=== PATIENT | female | born 2000 | race Caucasian/White ===

== ENCOUNTER 2024-01-11 07:56 | Inpatient (IN) ==
[2024-01-11] MEDS ORDERED: LIDOCAINE 1% LOCAL 20 ML VIAL INFIL PRN (08:15)
[2024-01-11] MEDS ORDERED: OXYTOCIN 30 UNITS/NSS 30 UNITS/500 ML BAG IV PRN (08:15)
--- NOTE | 2024-01-11 08:19 | History & Physical Report ---
Date of Service January 11, 2024 Assessment & Plan (1) Normal labor: Plan: Spontaneous labor GBS + tx with pen G GDM untreated, BSG q2h epidural pitocin arom when indicated monitor tracing, category 1 History of Present Illness Primary Care Provider: Freddie Hicks DO 23 yo at 38w2d admitted for labor. Began spontaneously augusto ~3am Denies CALLEJAS, CP, SOB, N/V/D, LE pain. GBS +, RH+. GBS+. -LOF, VB. +fm. GDM not on insulin Allergies Allergy/AdvReac Type Severity Reaction Status Date / Time erythromycin base [From [facility]] Allergy Intermediate Redness of Verified 01/08/24 10:37 Skin Home Medications Medication Instructions Recorded Confirmed Type sertraline 100 mg tablet 100 mg PO DAILY 08/29/23 01/11/24 History acetone (urine) test (Ketone Urine #50 ea 09/18/23 01/08/24 Rx Test strips) blood sugar diagnostic (OneTouch #150 ea 09/18/23 01/08/24 Rx Verio test strips) blood-glucose meter (OneTouch #1 ea 09/18/23 01/08/24 Rx Verio Reflect Meter) lancets 33 gauge (OneTouch Delica #150 ea 09/18/23 01/08/24 Rx Plus Lancet) insulin NPH isoph U-100 human 100 10 unit (0.1 mL) subcut QPM #15 mL 10/02/23 01/08/24 Rx unit/mL (3 mL) subcutaneous pen (Novolin N FlexPen) pen needle, diabetic 32 gauge x #100 ea 10/02/23 01/08/24 Rx 5/32" (BD Ultra-Fine Yasmin Pen Needle) vits no.124-ferrous fum 1 tab PO DAILY 01/11/24 01/11/24 History 27 mg iron-folic acid 800 mcg tablet ( Vitamin) Patient History Medical History (Updated 01/11/24 @ 09:26 by Subhash Kim DO) Depression Asthma Varicella vaccination Surgical History (Updated 08/22/23 @ 10:11 by Brenda Senior) Status post surgery tailbone fracture with repair S/P hernia surgery Status post surgery oral surgery x 2 Family History (Updated 08/22/23 @ 09:58 by Brenda Senior) Grandfather (Maternal) Heart disease Mother Diabetes Grandmother (Maternal) Kidney failure Denies family history of Ovarian cancer Breast cancer Colorectal cancer Social History (Updated 08/22/23 @ 09:59 by Brenda Senior) Smoking Status: Never smoker Do You Dip or Chew Tobacco: No; Hx Alcohol Use: No Hx Substance Use: No Preferred Language: R[place] Communication Ability: Effective Phlebotomy Supervisor Required: No Beliefs That Will Affect Care: None marital status: marital status details: Mack Nguyen(25) [phone] Current Living Situation: Family Current Living Situation Comment: lives with spouse, daughter, dog, cat-spouse changing litter current occupational status: employed current occupation: [employer] Other Information That Helps Us Care for You: No Feels Safe at Home: Yes Safety Concerns: Feels Safe At This Time OB History History : 4 Full term: 1 Premature: 0 Total Number of Induced Abortions: 0 Total Number of Spontaneous Abortions: 2 Ectopics: 0 Multiple births: 0 Number of Living Children: 1 Menstrual History Last menstrual period: No Menstrual reliability: unknown Flow: normal Menstrual regularity: irregular Monthly: No Age at menarche: 10 On control pills at conception: No Menstrual history comments: cycles "varies" per patient Details: last pap 05/2023 Review of Systems reviewed, per HPI Physical Exam Physical Exam: General: patient resting comfortably, NAD, non-toxic in appearance, answers questions appropriately. Skin: warm, dry, intact HEENT: NC/AT, anicteric sclera, conjunctiva without injection, moist mucus membranes Heart: +S1/S2, regular, no m/r/g Lungs: equal air entry bilaterally, no rales/rhonchi/wheezes Abd: +BS, soft, NT/ND, gravid uterus Cervical: 6|90|-2| Ext: warm, no clubbing/cyanosis or edema Neuro: nonfocal, speech intact, no facial droop, moving all extremities on command. : FHR baseline 150-60, moderate variability, accelerations present, decelerations absent Supervising Physician Co-Signing Physician Notes Resident Physician Supervision Note: I interviewed and examined the patient. Discussed with Dr. Kim and agree with findings and plan as documented in the note. Any exceptions or clarifications are listed here: [None] Documented By: Madhavi Ribeiro MD, FACOG Resident Activity Tracking Resident Involvement: Resident Care Provided Care Provided: Adult Hospital Medicine
[2024-01-11] MEDS: LACTATED RINGER'S 1,000 ML IV PRN (08:49)
[2024-01-11 09:01] LABS: Hematocrit (blood only) 29.3 % (37.0-47.0); Hemoglobin 8.6 g/dl (12.0-16.0); Mean Corpuscular Hemoglobin 21.9 pg (25.0-34.0); Mean Corpuscular Hgb Conc 29.4 g/dL (32.0-36.0); Mean Corpuscular Volume 74.7 fL (80.0-100.0); Platelet Count 348 K/uL (130-400); RDW Coefficient of Variation 15.9 % (11.5-14.5); RDW Standard Deviation 42.9 fL (36.4-46.3); Red Blood Count 3.92 M/uL (4.20-5.40); White Blood Count 15.39 K/ul (4.8-10.8)
[2024-01-11] MEDS: PENICILLIN GK 6 MU in DEXTROSE 5% 250 ML IV STA (09:02)
[2024-01-11] MEDS ORDERED: CARBOHYDRATES FOR HYPOGLYCEMIA PO PRN (09:49)
[2024-01-11] MEDS ORDERED: GLUCOSE 10 TAB/TUBE PO PRN (09:49)
[2024-01-11] MEDS ORDERED: DEXTROSE 50% 50 ML SYRINGE IV PRN ×2 (09:49→09:51)
[2024-01-11] MEDS ORDERED: GLUCOSE 40% GEL 15 GM TUBE PO PRN (09:49)
[2024-01-11] MEDS ORDERED: GLUCAGON FOR INJ 1 MG VIAL SQ PRN (09:49)
--- NOTE | 2024-01-11 09:50 | Anesthesiology Consultation ---
Date of Service January 11, 2024 Assessment & Plan Chart Review Chart Review: Acceptable Risk for Labor Epidural Consults Requested none History Height/Weight Height: 5 ft 3 in Weight: 117.934 kg Allergies Allergy/AdvReac Type Severity Reaction Status Date / Time erythromycin base [From [facility]] Allergy Intermediate Redness of Verified 01/08/24 10:37 Skin Medications Home Medications Medication Instructions Recorded Confirmed Last Taken sertraline 100 mg tablet 100 mg PO DAILY 08/29/23 01/11/24 01/10/24 acetone (urine) test (Ketone Urine #50 ea 09/18/23 01/08/24 Unknown Test strips) blood sugar diagnostic (OneTouch #150 ea 09/18/23 01/08/24 Unknown Verio test strips) blood-glucose meter (OneTouch #1 ea 09/18/23 01/08/24 Unknown Verio Reflect Meter) lancets 33 gauge (OneTouch Delica #150 ea 09/18/23 01/08/24 Unknown Plus Lancet) insulin NPH isoph U-100 human 100 10 unit (0.1 mL) subcut QPM #15 mL 10/02/23 01/08/24 Unknown unit/mL (3 mL) subcutaneous pen (Novolin N FlexPen) pen needle, diabetic 32 gauge x #100 ea 10/02/23 01/08/24 Unknown 5/32" (BD Ultra-Fine Yasmin Pen Needle) vits no.124-ferrous fum 1 tab PO DAILY 01/11/24 01/11/24 01/10/24 27 mg iron-folic acid 800 mcg tablet ( Vitamin) Active Medications Generic Name Dose Route Start Last Admin Trade Name Freq PRN Reason Stop Dose Admin Lactated Ringer's 1,000 mls @ 125 mls/hr 01/11/24 08:15 01/11/24 08:49 Lr IV 01/13/24 08:14 999 mls/hr .Q8H PRN Administration L&D Protocol Protocol Past Medical History Medical History (Updated 01/11/24 @ 09:26 by Sbuhash Kim DO) Depression Asthma Varicella vaccination Past Family History Family History (Updated 08/22/23 @ 09:58 by Brenda Senior) Grandfather (Maternal) Heart disease Mother Diabetes Grandmother (Maternal) Kidney failure Denies family history of Ovarian cancer Breast cancer Colorectal cancer Past Surgical History Surgical History (Updated 08/22/23 @ 10:11 by Brenda Senior) Status post surgery tailbone fracture with repair S/P hernia surgery Status post surgery oral surgery x 2 Social History Smoking Status: Never smoker Do You Dip or Chew Tobacco: No Hx Alcohol Use: No Hx Substance Use: No Physical Exam Vital Signs Last Vital Signs Temp 36.8 C 01/11/24 08:14 Resp 18 01/11/24 08:14 Testing Laboratory Results 01/11/24 08:44 01/11/24 08:47 POC Glucose 118 H
[2024-01-11] MEDS ORDERED: SODIUM CHLORIDE 0.9% 1,000 ML IV PRN (09:51)
[2024-01-11] MEDS ORDERED: NALBUPHINE HCL 5 MG in SYRINGE 0 ML IV PRN (09:52)
[2024-01-11] MEDS ORDERED: SODIUM CHLORIDE 0.9% PF INJ 10 ML VIAL EPI PRN (09:52)
[2024-01-11] MEDS ORDERED: NALOXONE HCL 1 MG in SODIUM CHLORIDE 0.9% 1,000 ML IV PRN (09:52)
[2024-01-11] MEDS ORDERED: fentaNYL citrate PF 100 MCG/2 ML VIAL EPI STA (09:52)
[2024-01-11] MEDS ORDERED: diphenhydrAMINE 50 MG/ML VIAL IV PRN (09:52)
[2024-01-11] MEDS ORDERED: NALOXONE HCL 0.4 MG/1 ML VIAL/CARP IV PRN (09:52)
[2024-01-11] MEDS ORDERED: fentaNYL citrate PF 100 MCG/2 ML VIAL EPI PRN (09:52)
[2024-01-11] MEDS ORDERED: SODIUM CHLORIDE 0.9% PF INJ 10 ML VIAL EPI STA (09:52)
[2024-01-11] MEDS ORDERED: LIDOCAINE 2% MPF LOCAL 5 ML VIAL EPI PRN (09:52)
[2024-01-11] MEDS ORDERED: BUPIVACAINE 0.25% PF 30 ML VIAL EPI PRN (09:52)
[2024-01-11] MEDS ORDERED: ROPIVACAINE 0.5% PF 5 MG/ML 20 ML VIAL EPI PRN (09:52)
[2024-01-11] MEDS ORDERED: LANTUS PER UNIT CHARGE SQ SCH (10:00)
[2024-01-11] MEDS: ePHEDrine sulfate 50 MG/ML AMP IV PRN (10:15)
[2024-01-11] MEDS: fentANYL 2 MCG/ML BUPIVacaine 0.125%-NSS 100ML BAG EPI PRN (10:18)
[2024-01-11] MEDS: BUPIVACAINE 0.25% PF 30 ML VIAL EPI STA (10:18)
[2024-01-11] MEDS: LIDOCAINE 2%/EPINEPHRINE 1:200,000 20 ML PF EPI STA (10:18)
--- NOTE | 2024-01-11 10:23 | Anesthesiology Consultation ---
Date of Service January 11, 2024 Assessment & Plan Chart Review Chart Review: Acceptable Risk for Surgery Consults Requested none ASA [id number] Proposed Anesthesia Anesthesia Type: CSE History Height/Weight Height: 5 ft 3 in Weight: 117.934 kg Allergies Allergy/AdvReac Type Severity Reaction Status Date / Time erythromycin base [From Er] Allergy Intermediate Redness of Verified 01/08/24 10:37 Skin Medications Home Medications Medication Instructions Recorded Confirmed Last Taken sertraline 100 mg tablet 100 mg PO DAILY 08/29/23 01/11/24 01/10/24 acetone (urine) test (Ketone Urine #50 ea 09/18/23 01/08/24 Unknown Test strips) blood sugar diagnostic (OneTouch #150 ea 09/18/23 01/08/24 Unknown Verio test strips) blood-glucose meter (OneTouch #1 ea 09/18/23 01/08/24 Unknown Verio Reflect Meter) lancets 33 gauge (OneTouch Delica #150 ea 09/18/23 01/08/24 Unknown Plus Lancet) insulin NPH isoph U-100 human 100 10 unit (0.1 mL) subcut QPM #15 mL 10/02/23 01/08/24 Unknown unit/mL (3 mL) subcutaneous pen (Novolin N FlexPen) pen needle, diabetic 32 gauge x #100 ea 10/02/23 01/08/24 Unknown " (BD Ultra-Fine Yasmin Pen Needle) vits no.124-ferrous fum 1 tab PO DAILY 01/11/24 01/11/24 01/10/24 27 mg iron-folic acid 800 mcg tablet ( Vitamin) Active Medications Generic Name Dose Route Start Last Admin Trade Name Freq PRN Reason Stop Dose Admin Ephedrine Sulfate 10 mg 01/11/24 09:52 01/11/24 10:15 Ephedrine Sulfate 50 Mg/Ml Amp IV 01/12/24 09:51 10 mg Q5M PRN Administration Hypotension Fentanyl/Bupivacaine/Sodium Chlor 100 ml 01/11/24 09:52 01/11/24 10:18 Fentanyl 2 Mcg/Ml Bupivacaine 0.125%-Nss 100ml Bag EPI 01/12/24 09:51 100 ml PRN PRN Administration Pain R/T Labor Protocol Lactated Ringer's 1,000 mls @ 125 mls/hr 01/11/24 08:15 01/11/24 12:00 Lr IV 01/13/24 08:14 125 mls/hr .Q8H PRN Administration L&D Protocol Protocol Penicillin G Potassium 3 mu/ 106 mls @ 100 mls/hr 01/11/24 11:15 01/11/24 12:40 Dextrose IV 01/21/24 11:14 106 mls/hr Q4H PRN Administration GBS(+) Until Delivery Dextrose 1,000 mls @ 100 mls/hr 01/11/24 09:51 01/11/24 14:57 D5w IV 02/10/24 09:50 100 mls/hr .Q10H PRN Titration BSG 180 or below Protocol Insulin Human Regular 250 250 mls @ 0.5 mls/hr 01/11/24 09:51 01/11/24 14:57 units/ Sodium Chloride IV 02/10/24 09:50 0.5 units/hr .Q24H PRN 0.5 mls/hr BSG 80mg/dL or ABOVE Titration Protocol 0.5 UNITS/HR Oxytocin 30 units in 500 mls @ 7 mls/hr 01/11/24 12:40 01/11/24 15:00 Pitocin 30 Units/Nss IV 01/13/24 12:39 0.42 units/hr .Q24H PRN 7 mls/hr Labor Induction/Augmentation Titration Protocol 0.42 UNITS/HR NPO Date Last Intake of Fluids: 01/11/24 Time Last Intake of Fluids: 09:30 Date Last Intake of Solids: 01/11/24 Time Last Intake of Solids: 07:30 Past Medical History Medical History (Updated 01/11/24 @ 09:26 by Subhash Kim DO) Depression Asthma Varicella vaccination Past Family History Family History (Updated 08/22/23 @ 09:58 by Brenda Senior) Grandfather (Maternal) Heart disease Mother Diabetes Grandmother (Maternal) Kidney failure Denies family history of Ovarian cancer Breast cancer Colorectal cancer Past Surgical History Surgical History (Updated 08/22/23 @ 10:11 by Brenda Senior) Status post surgery tailbone fracture with repair S/P hernia surgery Status post surgery oral surgery x 2 Social History Smoking Status: Never smoker Do You Dip or Chew Tobacco: No Hx Alcohol Use: No Hx Substance Use: No Physical Exam Vital Signs Last Vital Signs Temp 36.8 C 01/11/24 08:14 Pulse 105 H 01/11/24 10:22 Resp 18 01/11/24 08:14 BP 123/53 L 01/11/24 10:22 Pulse Ox 100 01/11/24 10:18 Testing Laboratory Results 01/11/24 08:44 01/11/24 08:47 POC Glucose 118 H
[2024-01-11] MEDS: DEXTROSE 5% 1,000 ML IV PRN (10:50)
[2024-01-11] MEDS: INSULIN REGULAR 250 UNITS in SODIUM CHLORIDE 0.9% 247.5 ML IV PRN (10:56)
[2024-01-11] MEDS: ePHEDrine sulfate 50 MG/ML AMP ONE (11:23)
[2024-01-11] MEDS: BUPIVACAINE 0.25% PF 30 ML VIAL ONE (11:23)
[2024-01-11] MEDS: fentANYL 2 MCG/ML BUPIVacaine 0.125%-NSS 100ML BAG ONE (11:23)
[2024-01-11] MEDS: fentaNYL citrate PF 100 MCG/2 ML VIAL ONE (11:23)
[2024-01-11] MEDS: LIDOCAINE 2%/EPINEPHRINE 1:200,000 20 ML PF ONE (11:24)
[2024-01-11] MEDS ORDERED: INSULIN ASPART PER UNIT CHARGE SC SCH (11:30)
[2024-01-11] MEDS: PENICILLIN GK 3 MU in DEXTROSE 5% 100 ML IV PRN (12:40)
[2024-01-11] MEDS: OXYTOCIN 30 UNITS/NSS 30 UNITS/500 ML BAG IV PRN ×2 (12:42→16:50)
[2024-01-11] MEDS ORDERED: fentaNYL citrate PF 100 MCG/2 ML VIAL ONE (15:04)
--- NOTE | 2024-01-11 15:11 | Anesthesia Procedure Note ---
Date of Service January 11, 2024 Anesthesia Epidural Re-Dose Vital Signs Temp Pulse Resp BP Pulse Ox 36.8 C 90 18 117/56 L 100 01/11/24 13:00 01/11/24 15:08 01/11/24 14:30 01/11/24 14:24 01/11/24 15:08 Notes Pain Intensity: 8 Dilatation (cm): 10.0 Effacement (%): 100 Called by nursing to evaluate epidural as the patient is having increased pain. The epidural was re-dosed with the following medications (all medications via epidural route) after negative aspiration of the epidural catheter for CSF/HEME. 2% lidocaine 5ml with fentanyl 100mcg. After Epidural Re-Dose Mental Status: alert / awake / arousable Pain: improving with treatment Airway Patency, RR, SpO2: stable & adequate BP & HR: stable & adequate
[2024-01-11] MEDS ORDERED: bisacodyL 10 MG SUPP PR PRN (15:52)
[2024-01-11] MEDS ORDERED: BENZOCAINE 20% SPRY 85 APPLN/85 GM CAN EXT PRN (15:52)
[2024-01-11] MEDS ORDERED: ACETAMINOPHEN 325 MG TAB PO PRN (15:52)
[2024-01-11] MEDS ORDERED: HYDROCORTISONE ACETATE 25 MG SUPP PR PRN (15:52)
[2024-01-11] MEDS ORDERED: oxyCODONE/ACETAMINOPHEN 5mg/325mg TAB PO PRN (15:52)
--- NOTE | 2024-01-11 16:04 | Delivery Summary ---
Vaginal Delivery Summary Date of Service January 11, 2024 Vaginal Delivery Summary Patient is a 23-year-old 2 para 1-0-0-1 female EDC of 01/23/2024 who presented in active labor. She received effective epidural analgesia. She did require some Pitocin augmentation to continue and effective contraction pattern. She progressed to full dilation and pushed effectively over intact perineum for delivery of a viable female . After the head was delivered nuchal cord x 1 was reduced. The rest the delivered without maternal effort. She was placed on the mother's abdomen for further attention and drying. With stimulation she did spontaneously start to cry. At approximately 45 seconds the cord was clamped and cut. After your cord blood was obtained, the placenta was expressed intact with a three-vessel cord. bleeding was controlled with dilute Pitocin and fundal massage. There were no perineal lacerations present. A superficial abrasion near the urethra was not bleeding and therefore not repaired. Estimated blood loss was 500 cc. Mother and infant were doing well after delivery. [facility] Vaginal Delivery Charge Delivery Type Details: [facility]
[2024-01-11] MEDS ORDERED: SODIUM CHLORIDE 0.9% 250 ML IV PRN (16:56)
[2024-01-11] MEDS ORDERED: LACTATED RINGER'S 1,000 ML IV SCH (17:30)
[2024-01-11] MEDS: METHYLERGONOVINE MALEATE 0.2 MG/ML AMP IM STA (17:40)
[2024-01-11 17:44] LABS: Hematocrit (blood only) 25.9 % (37.0-47.0); Hemoglobin 7.5 g/dl (12.0-16.0); Mean Corpuscular Hemoglobin 22.2 pg (25.0-34.0); Mean Corpuscular Volume 76.6 fL (80.0-100.0); Mean Platelet Volume 10.7 fL (9.4-12.4); Platelet Count 329 K/uL (130-400); RDW Coefficient of Variation 15.8 % (11.5-14.5); RDW Standard Deviation 43.9 fL (36.4-46.3); Red Blood Count 3.38 M/uL (4.20-5.40)
--- NOTE | 2024-01-11 17:48 | Obstetrical Progress Note ---
Date of Service January 11, 2024 Assessment & Plan (1) hemorrhage: Plan: Syncopal episode while still in the labor and delivery bed. She is now more responsive and less symptomatic now that IV fluids have been restarted. We will continue with IV Pitocin which has now been restarted. She had 500 cc estimated blood loss from the delivery +428 cc measured post delivery. She has been typed and crossed for 2 units and we will transfuse when they are available. Her initial hemoglobin was 8.6 she had not been taking a vitamin. Will get a stat H&H to start as well. She will receive 1 dose of transischemic acid. Admission and Anticipated Discharge Date Admission Date: January 11, 2024 Subjective I was called to the patient's bedside because in the immediate period she became unresponsive while still in the bed. Pulse oximeter showed oxygenation was 100%. Pulse was 92 - B/P was 101/58. Patient responded to sternal rub and voice. Fundal massage produced 428 cc of clot. Fundus was then firm. IV fluids were restarted and the patient has become more responsive. Review of Systems Review of Systems: All systems reviewed & are unremarkable except as noted in HPI & below Physical Exam Genitourinary: Fundus firm at umbilicus. No further clots are expelled. Bleeding seems to be minimal at this point. Results & Data Vital Signs (Past 12 Hours) Vital Signs Temp Pulse Resp BP Pulse Ox 01/11/24 17:39 100 H 108/56 L 01/11/24 17:38 95 H 100 01/11/24 17:33 91 H 100 01/11/24 17:28 97 H 100 01/11/24 17:26 98 H 111/58 L 01/11/24 17:23 91 H 99 01/11/24 17:21 91 H 101/58 L 01/11/24 17:18 89 100 01/11/24 17:16 83 112/57 L 01/11/24 17:13 88 100 01/11/24 17:11 88 106/57 L 01/11/24 17:10 18 01/11/24 17:08 85 100 01/11/24 17:06 84 108/56 L 01/11/24 17:03 96 H 100 01/11/24 17:01 88 109/55 L 01/11/24 16:58 104 H 102/55 L 100 01/11/24 16:55 97 H 102/52 L 01/11/24 16:53 96 H 100 01/11/24 16:40 97.9 F 18 01/11/24 16:39 100 H 113/58 L 01/11/24 16:25 18 01/11/24 16:23 115 H 109/58 L 01/11/24 16:10 18 01/11/24 16:09 97 H 110/56 L 01/11/24 15:55 18 01/11/24 15:54 100 H 125/58 L 01/11/24 15:40 98.2 F 18 01/11/24 15:39 105 H 123/52 L 01/11/24 15:23 115 H 99 01/11/24 15:21 110 H 83 L 01/11/24 15:18 120 H 100 01/11/24 15:13 88 100 01/11/24 15:08 90 100 01/11/24 15:03 91 H 100 01/11/24 14:58 84 100 01/11/24 14:53 94 H 100 01/11/24 14:48 79 100 01/11/24 14:43 97 H 100 01/11/24 14:40 91 H 85 L 01/11/24 14:38 104 H 97 01/11/24 14:34 96 H 91 01/11/24 14:33 88 100 01/11/24 14:30 18 01/11/24 14:30 18 01/11/24 14:28 80 100 01/11/24 14:24 95 H 117/56 L 01/11/24 14:23 98 H 100 01/11/24 14:18 82 99 01/11/24 14:13 84 100 01/11/24 14:08 85 125/66 100 01/11/24 14:03 85 99 01/11/24 14:00 18 01/11/24 14:00 18 01/11/24 13:58 84 100 01/11/24 13:54 86 118/56 L 01/11/24 13:53 87 100 01/11/24 13:48 91 H 100 01/11/24 13:43 94 H 100 01/11/24 13:39 88 131/67 01/11/24 13:38 87 100 01/11/24 13:33 94 H 100 01/11/24 13:30 18 01/11/24 13:30 18 01/11/24 13:28 94 H 100 01/11/24 13:25 86 116/64 01/11/24 13:23 92 H 100 01/11/24 13:18 81 100 01/11/24 13:13 88 100 01/11/24 13:09 88 124/59 L 01/11/24 13:08 82 100 01/11/24 13:03 87 100 01/11/24 13:00 18 01/11/24 13:00 98.2 F 18 01/11/24 12:58 91 H 100 01/11/24 12:55 93 H 107/59 L 01/11/24 12:53 88 100 01/11/24 12:48 87 100 01/11/24 12:43 98 H 100 01/11/24 12:39 87 113/55 L 01/11/24 12:38 85 100 01/11/24 12:33 86 100 01/11/24 12:30 18 01/11/24 12:30 18 01/11/24 12:28 87 100 01/11/24 12:23 96 H 116/57 L 100 01/11/24 12:18 96 H 100 01/11/24 12:13 97 H 100 01/11/24 12:09 86 121/58 L 01/11/24 12:08 88 100 01/11/24 12:03 90 100 01/11/24 11:58 102 H 99 01/11/24 11:53 88 113/58 L 100 01/11/24 11:48 89 100 01/11/24 11:43 95 H 100 01/11/24 11:38 91 H 112/61 100 01/11/24 11:33 97 H 100 01/11/24 11:30 18 01/11/24 11:30 18 01/11/24 11:28 94 H 100 01/11/24 11:24 88 116/57 L 01/11/24 11:23 89 100 01/11/24 11:18 97 H 100 01/11/24 11:13 96 H 100 01/11/24 11:09 96 H 116/55 L 01/11/24 11:08 97 H 100 01/11/24 11:03 94 H 100 01/11/24 10:58 92 H 100 01/11/24 10:53 89 121/58 L 100 01/11/24 10:50 86 119/58 L 01/11/24 10:48 95 H 100 01/11/24 10:43 88 100 01/11/24 10:38 89 100 01/11/24 10:33 91 H 100 01/11/24 10:28 96 H 100 01/11/24 10:24 18 01/11/24 10:24 18 01/11/24 10:23 98 H 100 01/11/24 10:22 105 H 18 123/53 L 01/11/24 10:20 91 H 18 127/59 L 01/11/24 10:19 81 126/58 L 01/11/24 10:18 81 18 100 01/11/24 10:16 98 H 18 80/41 L 01/11/24 10:14 88 18 90/45 L 01/11/24 10:13 92 H 99 01/11/24 10:12 103 H 18 103/46 L 01/11/24 10:08 89 100 01/11/24 10:06 76 140/65 01/11/24 10:03 99 H 99 01/11/24 10:01 102 H 87 L 01/11/24 09:58 104 H 99 01/11/24 09:53 99 01/11/24 09:53 86 01/11/24 09:53 86 143/67 H 01/11/24 08:14 98.2 F 18 01/11/24 08:09 18 01/11/24 08:09 98.2 F 18 PG Care Time/CCT Total # of Minutes Spent Total Time Spent with Patient: Total time spent is greater than 50% in coordination of care (as documented) at patient's floor/unit and/or counseling patient: Coding Level of Care Code None Diagnoses hemorrhage O72.1
[2024-01-11] MEDS: TRANEXAMIC ACID / 0.7% NACL 1,000 MG/100 ML BAG IV STA (18:04)
[2024-01-11] MEDS: SODIUM CHLORIDE 0.9% PF INJ 10 ML VIAL ONE (18:47)
[2024-01-11] MEDS: IBUPROFEN 600 MG TAB PO PRN (22:25)
[2024-01-12 03:28] LABS: Hematocrit (blood only) 27.9 % (37.0-47.0); Hemoglobin 8.5 g/dl (12.0-16.0); Mean Corpuscular Hemoglobin 23.9 pg (25.0-34.0); Mean Corpuscular Hgb Conc 30.5 g/dL (32.0-36.0); Mean Corpuscular Volume 78.6 fL (80.0-100.0); Mean Platelet Volume 10.8 fL (9.4-12.4); Platelet Count 266 K/uL (130-400); RDW Coefficient of Variation 16.4 % (11.5-14.5); RDW Standard Deviation 46.9 fL (36.4-46.3); Red Blood Count 3.55 M/uL (4.20-5.40); White Blood Count 20.67 K/ul (4.8-10.8)
--- NOTE | 2024-01-12 06:52 | Obstetrical Progress Note ---
Date of Service January 12, 2024 Assessment & Plan (1) care and examination: Plan: doing well encourage ambulation pain control no PNV, will need dc with iron supplement, multivitamin anticipate dc tomorrow Admission and Anticipated Discharge Date Admission Date: January 11, 2024 Supervising Physician Co-Signing Physician Notes Resident Physician Supervision Note: I interviewed and examined the patient. Discussed with Dr. Kim and agree with findings and plan as documented in the note. Any exceptions or clarifications are listed here: [None] Documented By: Madhavi Ribeiro MD, FACOG Subjective 23 yo post day 1 s/p . Post hemorrhage ~400cc, rec'd 2U PRBCs, Hb 8.5 this am Ambulation: ambulating normally Voiding: no voiding problems Passing Gas:: Yes Diet Tolerance:: regular diet Lochia:: Small Current Pain Level: mild/moderate Resting comfortably this AM in NAD. Denies CALLEJAS, CP, SOB, N/V/D, LE pain/swelling. Review of Systems Review of Systems: reviewed, per HPI Physical Exam Physical Exam: General: patient resting comfortably, NAD, non-toxic in appearance, answers questions appropriately. Skin: warm, dry, intact HEENT: NC/AT, anicteric sclera, conjunctiva without injection, moist mucus membranes. Heart: +S1/S2, regular, no m/r/g Lungs: equal air entry bilaterally, no rales/rhonchi/wheezes Abd: +BS, soft, NT/ND, uterine fundus firm at umbilicus Ext: warm, no clubbing/cyanosis or edema, Samantha's neg. Neuro: nonfocal, speech intact, no facial droop, moving all extremities on command. Results & Data Vital Signs (Past 12 Hours) Vital Signs Temp Pulse Pulse Resp BP BP Pulse Ox 01/12/24 03:09 36.4 C L 84 16 102/68 98 01/12/24 00:54 36.5 C 81 18 104/70 98 01/11/24 23:53 36.6 C 86 18 108/68 97 01/11/24 23:53 36.6 C 86 18 108/68 97 01/11/24 22:53 36.6 C 89 16 96/57 L 98 01/11/24 22:38 36.7 C 90 18 105/72 98 01/11/24 22:26 36.7 C 96 H 20 106/69 98 01/11/24 22:23 36.6 C 82 16 113/74 97 01/11/24 22:21 36.7 C 96 H 20 106/69 99 01/11/24 22:00 36.8 C 18 01/11/24 21:58 91 H 100 01/11/24 21:53 36.5 C 90 18 102/51 L 99 01/11/24 21:53 90 102/51 L 98 01/11/24 21:48 97 H 99 01/11/24 21:43 90 98 01/11/24 21:38 94 H 108/53 L 100 01/11/24 21:33 91 H 98 01/11/24 21:28 90 98 01/11/24 21:24 90 111/53 L 01/11/24 21:23 88 98 01/11/24 21:18 89 99 01/11/24 21:15 18 01/11/24 21:13 117 H 100 01/11/24 21:09 89 112/53 L 01/11/24 21:08 91 H 99 01/11/24 21:03 89 99 01/11/24 20:58 95 H 99 01/11/24 20:54 87 109/56 L 01/11/24 20:53 36.8 C 96 H 16 109/56 L 99 01/11/24 20:53 86 99 01/11/24 20:48 95 H 100 01/11/24 20:45 18 01/11/24 20:43 90 99 01/11/24 20:39 88 106/51 L 01/11/24 20:38 92 H 99 01/11/24 20:33 96 H 99 01/11/24 20:28 99 H 99 01/11/24 20:24 96 H 109/56 L 01/11/24 20:23 36.8 C 97 H 16 109/56 L 100 01/11/24 20:23 100 H 99 01/11/24 20:18 100 H 100 01/11/24 20:15 16 01/11/24 20:13 104 H 100 01/11/24 20:09 96 H 106/54 L 01/11/24 20:08 94 H 99 01/11/24 20:03 97 H 99 01/11/24 19:58 91 H 99 01/11/24 19:54 95 H 110/51 L 01/11/24 19:53 36.9 C 87 16 110/51 L 99 01/11/24 19:53 88 99 01/11/24 19:48 94 H 100 01/11/24 19:45 18 01/11/24 19:43 96 H 98 01/11/24 19:39 89 114/55 L 01/11/24 19:38 37.0 C 92 H 18 114/55 L 98 01/11/24 19:38 91 H 98 01/11/24 19:33 89 99 01/11/24 19:28 92 H 99 01/11/24 19:23 89 100 01/11/24 19:18 95 H 126/56 L 100 01/11/24 19:16 36.8 C 94 H 16 126/56 L 100 01/11/24 19:13 90 100 01/11/24 19:08 94 H 100 01/11/24 19:03 106 H 100 01/11/24 18:58 94 H 100 01/11/24 18:53 89 99 O2 Del Method 01/12/24 03:09 Room Air 01/12/24 00:54 01/11/24 23:53 Room Air 01/11/24 23:53 01/11/24 22:53 01/11/24 22:38 01/11/24 22:26 Room Air 01/11/24 22:23 01/11/24 22:21 01/11/24 22:00 01/11/24 21:58 01/11/24 21:53 01/11/24 21:53 01/11/24 21:48 01/11/24 21:43 01/11/24 21:38 01/11/24 21:33 01/11/24 21:28 01/11/24 21:24 01/11/24 21:23 01/11/24 21:18 01/11/24 21:15 01/11/24 21:13 01/11/24 21:09 01/11/24 21:08 01/11/24 21:03 01/11/24 20:58 01/11/24 20:54 01/11/24 20:53 01/11/24 20:53 01/11/24 20:48 01/11/24 20:45 01/11/24 20:43 01/11/24 20:39 01/11/24 20:38 01/11/24 20:33 01/11/24 20:28 01/11/24 20:24 01/11/24 20:23 01/11/24 20:23 01/11/24 20:18 01/11/24 20:15 01/11/24 20:13 01/11/24 20:09 01/11/24 20:08 01/11/24 20:03 01/11/24 19:58 01/11/24 19:54 01/11/24 19:53 01/11/24 19:53 01/11/24 19:48 01/11/24 19:45 01/11/24 19:43 01/11/24 19:39 01/11/24 19:38 01/11/24 19:38 01/11/24 19:33 01/11/24 19:28 01/11/24 19:23 01/11/24 19:18 01/11/24 19:16 01/11/24 19:13 01/11/24 19:08 01/11/24 19:03 01/11/24 18:58 01/11/24 18:53 Resident Activity Tracking Resident Involvement: Resident Care Provided Care Provided: Adult Hospital Medicine
[2024-01-12 07:43] LABS: Estimated Average Glucose 137 mg/dl; Hemoglobin A1C 6.4 % (4.5-5.6)
[2024-01-12] MEDS: DOCUSATE SODIUM 100 MG CAP PO SCH (07:52)
[2024-01-12] MEDS: PRENATAL VITAMIN 1 TAB PO SCH (07:52)
[2024-01-12] MEDS: SERTRALINE HCL 100 MG TABLET PO SCH (07:52)
[2024-01-12] MEDS: FERROUS SULFATE 325 MG TAB PO SCH (07:53)
[2024-01-12] MEDS ORDERED: PRENATAL VITAMIN 1 TAB PO SCH (09:00)
[2024-01-12] MEDS: DIPHTHER/TETAN/PERTUS Vaccine (Tdap, Adol/Adult) 0.5mL IM ONE (18:09)
[2024-01-12] MEDS ORDERED: bisacodyL 5 MG TABEC PO SCH (20:00)
--- NOTE | 2024-01-15 08:21 | Discharge Summary ---
Date of Service January 15, 2024 Admission HPI Per Admitting Provider 23 yo at 38w2d admitted for labor. Began spontaneously augusto ~3am Denies CALLEJAS, CP, SOB, N/V/D, LE pain. GBS +, RH+. GBS+. -LOF, VB. +fm. GDM not on insulin Admission Exam (Per Admitting) Constitutional no acute distress ENMT Nose: no facial edema Mouth: no dentition abnormality Mallampati Class: II Neck normal visual inspection Respiratory normal respiratory effort; no respiratory distress Auscultation: lungs clear to auscultation bilaterally Cardiovascular Rate/Rhythm: regular rate and regular rhythm Heart Sounds: no murmur Musculoskeletal Spine: normal cervical ROM Psychiatric Orientation: alert and oriented x 3 Discharge Data Consultations 01/11/24 08:15 Consult Anesthesiology Stat Hospital Course (1) care and examination: doing well encourage ambulation pain control no PNV, will need dc with iron supplement, multivitamin anticipate dc tomorrow Discharge Plan Discharge Items Patient Disposition: Home - Self-Care Reason For Visit: check labor Discharge Diagnosis: hemorrhage Activity: Per Instructions section Non-emergency contact: Primary Care Provider and [employer] Call non-emergency contact if: you have any medication questions, your pain is not controlled, your pain is unusual for you, you have a fever and your temperature is above 101 Follow-up/Referrals: Freddie Hicks, DO [Primary Care Provider] - Diet: Regular OB Addtl Attending Provider Instructions: ACTIVITY RECOMMENDATIONS: * Gradual return to full activity over the next 2-3 weeks. * No lifting - nothing heavier than baby over the next 2-3 weeks. * Do not engage in vigorous exercise, sexual activity or sports until cleared by your physician. * Do not drive or operate any motorized equipment until cleared by your physician. * You may shower/bathe daily. MEDICATIONS: For discomfort or pain, you may use Acetaminophen (Tylenol), Ibuprofen (Advil), or Naproxen (Aleve) following the package directions. For constipation you may use Colace following the package directions. BREAST CARE: If you are not breast feeding: * Wear a supportive bra 24 hours a day for one to two weeks. * Avoid stimulating your breasts and nipples as much as possible during the first few weeks after delivery. * When taking a shower, have the warm water hit your back, not breasts. * When your breasts feel full, apply ice packs. Usually three to four times a day helps ease the discomfort. * Take a mild pain medication (Tylenol / Motrin) when you are uncomfortable. If breast feeding: * Use breast milk to lubricate nipples. Lansinoh cream may be used for sore nipples. You do not need to remove cream prior to breast feeding. If using a different brand of cream, check the label for directions regarding removal of cream prior to nursing. * Wear a supportive bra. * If having problems with breasts or breast feeding, call a store consultant or your health care provider. EPISIOTOMY CARE: After delivery, if you have an episiotomy (stitches), the following steps will ease discomfort and aid healing. * For the first 24 hours after delivery, place ice packs next to your episiotomy to help reduce swelling. * After the first 24 hour-period, sitz baths, either portable or in the tub, are suggested. A shower with a shower arm sprayed over the episiotomy may be comforting. * Daily care should be done after each voiding and bowel movement. Squirt warm water from a plastic bottle over the perineum (region of the body between the anus and urinary opening) and pat dry. * Use Dermoplast to ease discomfort. Shake container. [place] directly over the episiotomy. Place a Tucks on a clean sanitary pad next to your episiotomy. SPECIAL CARE INSTRUCTIONS: When you are discharged from the hospital, it is important for you to follow the instructions listed below: * During the first week at home, you should be able to care for yourself and your baby. In addition, the usual light household activities are encouraged. * Limit your activities to the way you feel. Do not try to clean the house or move furniture. Be sensible. * If you actively engage in sports and have done so up until the time of your delivery, you may resume these activities as soon as you feel able. This may take up to one month or even longer. Use good judgment. * Continue to take your vitamins for at least six weeks after the of your baby. * Your diet need not be limited unless you were on a special diet before your delivery. Breast-feeding mothers need around 2500 calories per day and at least 64-80 ounces of fluid per day (8 to 10 glasses). * You should eat foods from the four major food groups. Crash diets or fad diets are to be avoided. Eating lean meats, fresh fruits and vegetables, low-fat dairy products, high fiber foods and a regular exercise program, will help you get back to your pre- weight without putting your health at risk. * Constipation is sometimes a problem after delivery. Take a mild laxative as needed. If breast feeding, Milk of Magnesia is acceptable to use. You may use a suppository or Fleets enema if no episiotomy. * A daily shower or tub bath is suggested. Be sure to thoroughly and gently dry the perineum. * A bloody vaginal discharge will usually continue until around four weeks post . A small amount of bleeding may continue for as long as six weeks. Vaginal discharge changes from the bright red bleeding after delivery to pink then brownish and finally yellowish-pink before becoming white and disappearing. * Bleeding may increase with activity. Your first period may come in 4-8 weeks. If you are breast feeding, your period may be delayed even longer. * [place] (sex) can begin whenever both you and your partner feel comfortable and do not have any form of genital infection. It is recommended that you wait at least six weeks for internal and external healing to occur. If you have questions, please talk to your health care practitioner. A condom should be used to prevent infection and . * Foreplay, gentle intercourse and lubrication is very important the first several times to prevent pain. A water-based lubricant such as K-Y jelly or Astroglide may be used. * If you have RH negative blood and your baby is RH positive, you will receive RHOGAM by injection prior to discharge. The nurse will give you a card to keep with you that has the date and place that you received RHOGAM after delivery. * During your care, you had a Rubella screen done to check for the presence of rubella antibodies in your blood. If your test was negative, you will receive a Rubella vaccine prior to discharge. This vaccine may cause a fever, soreness at the injection site and flu-like symptoms. If these symptoms persist, notify your health care practitioner. is not advised for one month after a Rubella vaccine. * Verbalizes understanding of car seat law as reviewed with patient nursing. * Car Seat hand-out given and reviewed with patient by nursing. * Shaken baby information reviewed with patient by nursing. Call you doctor if: * Heavy bleeding (saturating several pads an hour) or passing clots the size of your fist. * A fever >101 degrees F (38.3 degrees C) on two occasions four hours apart and/or chills. * Unusual pain in the pelvic or vaginal areas. * "Baby Blues" lasting longer than two weeks. If you have any questions or concerns, call your health care practitioner at . FOLLOW UP VISIT: * Please call the office at to schedule a 6 week examination. It is important you keep this appointment. It is important for you to make arrangements for either yearly or twice yearly check-ups thereafter. Pending Studies at Discharge: No Stand-Alone Forms: My [facility] Medications and DC Order Prescriptions: Continued sertraline 100 mg tablet 100 mg PO DAILY Vitamin 27 mg iron- 800 mcg Tablet 1 tab PO DAILY Discontinued (DME) Ketone Urine Test Strip See Rx Instructions .MEDSUPPLY Qty: 50 5RF Rx Instructions: As directed to check ketones in urine once a day in the morning (DME) OneTouch Verio test strips Strip See Rx Instructions .MEDSUPPLY Qty: 150 5RF Rx Instructions: check blood sugars 4 times a day (DME) blood-glucose meter [OneTouch Verio Reflect Meter] Misc See Rx Instructions miscellaneous .MEDSUPPLY Qty: 1 0RF Rx Instructions: As directed (DME) lancets [OneTouch Delica Plus Lancet] 33 gauge misc See Rx Instructions .MEDSUPPLY Qty: 150 5RF Rx Instructions: As directed check blood sugars 4 times a day Novolin N FlexPen 100 unit/mL (3 mL) insulin pen 10 unit subcut QPM Qty: 15 1RF Rx Instructions: Inject 10 units at bed time; TDD may be increased as needed to 30 units at day (DME) pen needle, diabetic [BD Ultra-Fine Yasmin Pen Needle] 32 gauge x 5/32" needle See Rx Instructions miscellaneous .MEDSUPPLY Qty: 100 1RF Rx Instructions: As directed to use with Novolin N pen Discharge Orders: Discharge Order (Routine); Ordered 01/12/24 Ordered By: Lobo Mcleod/Other Patient Handouts: Understanding Blues, Depre ssion, Hemorrhage Admission Data Admit Date/Time: 01/11/24 09:26 Attending Provider: Madhavi Ribeiro Admit Provider: Madhavi Ribeiro Primary Care Provider: Freddie Hicks Other Providers: Eric Lutz Other Interventions: Discharge Summary Assessment (RN) Last Done: 01/12/24 11:54 Coding Level of Care Code 08615 IN/OBS DISCH 30 MIN/LESS Diagnoses care and examination Z39.2
== END 2024-01-12 18:35 | disposition home or self-care (01) | DRG 806 ==
LOC: OPB 07:56 → 4S1 07:59 → 4E2 22:37